=== PATIENT | female | born 1990 ===

== ENCOUNTER 2017-08-29 05:14 | Emergency (ER) | payer MEDICAID, OTHER ==
[2017-08-29 05:15] VITALS: BMI 25.0
[2017-08-29] MEDS ORDERED: Bacitracin 500 Units/gm Oint Foilpak UD TOP ONE (06:21)
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
[2017-08-29] MEDS ORDERED: Bacitracin 500 Units/gm Oint Foilpak UD ONE (06:30)
[2017-08-29 06:35] VITALS: BP 108/75; PULSE 75; RESP 16; TEMP 98.9
[2017-08-29 06:37] VITALS: O2SAT 99
== END 2017-08-29 06:39 | disposition home or self-care (01) ==
LOC: C.ER 05:14
DX: T23.111A Burn of first degree of right thumb (nail), initial encounter (principal); X08.8XXA Exposure to other specified smoke, fire and flames, initial encounter; Y93.G3 Activity, cooking and baking; Y92.000 Kitchen of unspecified non-institutional (private) residence as the place of occurrence of the external cause